=== PATIENT | male | born 1935 | race Caucasian/White ===

== ENCOUNTER 2019-03-12 07:15 | Day surgery (SDC) | payer MEDICARE, BC ==
[2019-03-05 15:22] LABS: BASOPHILS # (AUTO) 0.1 X10'3 (0-0.2); EOSINOPHILS # (AUTO) 0.3 X10'3 (0-0.9); EOSINOPHILS % (AUTO) 2.8 % (0-6); LYMPHOCYTES # (AUTO) 2.4 X10'3 (1.1-4.8); LYMPHOCYTES % (AUTO) 21.9 % (21-51); MEAN CORPUSCULAR HEMOGLOBIN 29.7 PG (27.0-31.0); MEAN CORPUSCULAR HGB CONC 33.3 g/dL (33.0-36.5); MEAN CORPUSCULAR VOLUME 89.1 FL (78-98); MEAN PLATELET VOLUME 8.9 FL (7.4-10.4); MONOCYTES % (AUTO) 9.3 % (2-12); NEUTROPHILS # (AUTO) 7.1 X10'3 (1.8-7.7); PRE OP HEMOGLOBIN 13.3 g/dL (14.0-17.9); PRE OP PLATELET COUNT 241 X10'3 (140-440); RED BLOOD COUNT 4.49 X10'6 (4.70-6.10); RED CELL DISTRIBUTION WIDTH 15.2 % (11.5-14.5)
[2019-03-05 15:33] LABS: PRE OP PROTIME 10.6 SECONDS (9.0-12.0)
[2019-03-05 15:44] LABS: ALKALINE PHOSPHATASE 141 IU/L (46-116); BLOOD UREA NITROGEN 32 MG/DL (7-18); BUN/CREATININE RATIO 22.9 (5.4-32.0); CALCIUM 10.3 MG/DL (8.5-10.1); CHLORIDE 109 MMOL/L (99-107); PRE OP ALT 29 U/L (30-65); PRE OP ANION GAP 9 (8-16); PRE OP AST 18 U/L (10-37); PRE OP BILIRUB, TOTAL 0.4 MG/DL (0.0-1.0); PRE OP GLUCOSE 136 MG/DL (70-104); PRE OP SODIUM 147 MMOL/L (135-145); TOTAL CARBON DIOXIDE 28.9 MMOL/L (24-32); TOTAL PROTEIN 7.9 G/DL (6.4-8.2); eGFR 48 ML/MIN
[~2019-03-12] VITALS: Ht 180.3 cm; Wt 100.0 kg
[~2019-03-12 07:15] MED LIST: ALLO100T PO; ASPI-529 PO; ATOR40TA PO; BUPIVAcaine/PF 2.5mg/ml (0.25%) 10ml vial ONE; DILT-94 PO; FENO145T36 PO; HYDR25TA4 PO; ICOS1CAP PO; LOSA25TA96 PO; SEMA1PEN SQ; VIT1CAPS46 PO; clindamycin-Cleocin 900mg/D5W 50 ML IV ONE; famotidine 20mg tablet PO ONE; ringers solution, lacted 1,000 ML IV SCH
[2019-03-12] MEDS ORDERED: LIDOcaine 0.5% (5mg/ml) 50ml vial ONE (10:18)
[2019-03-12] MEDS ORDERED: fentaNYL/PF 50MCG/1 ML 2ML syringe ONE ×3 (10:24→11:14)
[2019-03-12] MEDS ORDERED: midazolam 2 mg/2 ml injection ONE ×2 (10:24→10:48)
[2019-03-12] MEDS ORDERED: levoFLOXACIN-Levaquin 500mg/D5 100 ML IV ONE (11:10)
[2019-03-12] MEDS ORDERED: LIDOcaine 1%/PF 5ML 10 MG/ML VIAL ONE (11:44)
[2019-03-12] MEDS ORDERED: propofol inj 20 ML IV ONE (11:44)
[2019-03-12 11:52] VITALS: BP 132/72
[2019-03-12] MEDS ORDERED: flumazenil 0.1 mg/ml inj. IV ONE (11:52)
--- NOTE | 2019-03-12 11:52 | NUR ---
ARRIVED IN PACU VIA GURNEY FROM OR WITH DR Valles IN ATTENDANCE. REPORT RECEIVED COLOR GOOD. VS STABLE. NO C/O PAIN
[2019-03-12 12:02] VITALS: BP 142/66
[2019-03-12 12:12] VITALS: BP 128/62
[2019-03-12 12:22] VITALS: BP 128/67
--- NOTE | 2019-03-12 12:22 | NUR ---
AT BEDSIDE, DR DESAI IN TO SPEAK WITH PT AND
[2019-03-12 12:42] VITALS: BP 144/90
--- NOTE | 2019-03-12 12:42 | NUR ---
EXTERNAL JUJULAR D/C'D INTACT, PRESSURE HELD FOR 5MINS. DYR STERILE DSG APPLIED. UP,AMBULATED TO TOILET. STEADY ON FEET. REVIEWED DISCHARGE WITH PT AND . ASSISTED TO CAR VIA W/C BY NURSE WITHOUT INCIDENT.
[2019-03-12 12:45] VITALS: BP 144/90
== END 2019-03-12 12:42 | disposition home or self-care (01) ==
LOC: PAS 07:15
PROVIDERS: ATTEND Orthopaedic Surgery Hand Surgery
DX: M72.0 Palmar fascial fibromatosis [Dupuytren] (principal); G47.33 Obstructive sleep apnea (adult) (pediatric); M10.9 Gout, unspecified; I48.91 Unspecified atrial fibrillation; I10 Essential (primary) hypertension; M19.90 Unspecified osteoarthritis, unspecified site; E10.9 Type 1 diabetes mellitus without complications; E66.9 Obesity, unspecified; Z68.32 Body mass index [BMI] 32.0-32.9, adult; Z88.0 Allergy status to penicillin; Z79.899 Other long term (current) drug therapy
CPT/HCPCS: 26040; 26123; 26125; 36415; 71046; 80053; 82948; 85025; 85610; 85730; A6222; J1956; J2001; J2250; J2704; J3010; J3490; J7120; A4215; A4618; A6449; A7000